=== PATIENT | female | born 1980 | race Caucasian/White ===

== ENCOUNTER 2017-08-31 18:51 | Emergency (ER) | payer OTHER, SELFPAY ==
[2017-08-31 18:58] VITALS: BP 122/70; PULSE 84; RESP 18; TEMP 37; O2SAT 100
--- NOTE | 2017-08-31 19:50 | ED_ITS ---
HPI - Headache General Chief Complaint: Headache Stated Complaint: HAD AN EPIDURAL NOW HASPAIN NAUSEA Time Seen by Provider: 08/31/17 19:39 Source: patient and family Mode of arrival: ambulatory Limitations: no limitations History of Present Illness HPI Narrative: Otherwise healthy 37-year-old female presents to the emergency department with 3 day history of severe positional headache with nausea and light sensitivity. Three days ago she had an epidural steroid injection with [facility] for chronic neck pain and her symptoms have persisted since. MD Complaint: headache Onset (ago): day(s) Onset description: gradual Location: frontal Severity: severe Quality: throbbing Relieving factors: other (Laying flat) Exacerbating factors: sitting/standing and light Associated symptoms: nausea Treatments prior to arrival: none Related Data Previous Rx's Medication Instructions Recorded docusate sodium 250 mg PO QDAY PRN #30 cap 01/14/16 ibuprofen 600 mg PO Q6HP PRN #30 tab 01/14/16 norethindrone (contraceptive) 0.35 mg PO QDAY #3 packet 10/16/16 [Marlin] noreth-ethinyl estradiol-iron 1 tab PO QDAY #3 pac 12/29/16 [Generess Fe] acyclovir 400 mg PO BID #60 tab-cap 02/06/17 Allergies Allergy/AdvReac Type Severity Reaction Status Date / Time No Known Drug Allergies Allergy Verified 08/31/17 20:04 Review of Systems Review of Systems All systems reviewed & are unremarkable except as noted in HPI and below Constitutional Denies chills, Denies fever(s), Reports headache(s), Denies lethargy and Denies weakness Eyes Denies change in vision, Denies eye discharge, Denies irritation and Denies loss of vision ENT Ears, Nose, Mouth, and Throat: Denies change in voice, Reports headache(s), Denies neck pain and Denies sore throat Cardiovascular Denies chest pain, Denies irregular heart rhythm, Denies lightheadedness, Denies palpitations, Denies dyspnea, Denies dyspnea on exertion and Denies orthopnea Respiratory Denies cough, Denies dyspnea, Denies dyspnea on exertion and Denies wheezing Gastrointestinal Gastrointestinal: Denies abdominal pain, Denies change in bowel habits, Denies diarrhea, Denies nausea and Denies vomiting Genitourinary Denies hematuria, Denies flank pain, Denies urinary incontinence and Denies urinary urgency Musculoskeletal Denies neck pain Integumentary/Breasts Denies pruritus, Denies erythema, Denies rash and Denies wounds Neurologic Denies confusion, Reports headache(s), Denies loss of vision and Denies weakness Psychiatric Denies anxiety, Denies confusion, Denies depression, Denies homicidal ideation and Denies suicidal ideation Endocrine Denies palpitations Hematologic/Lymphatic Denies easy bruising Allergic/Immunologic Denies wheezing PFSH Social History Smoking Status: Never smoker Exam Narrative Exam Narrative: 37-year-old female sitting in a dark room, obviously in pain holding her head Initial Vital Signs Initial Vital Signs: Vital Signs Temperature 98.6 F 08/31/17 18:58 Pulse Rate 84 08/31/17 18:58 Respiratory Rate 18 08/31/17 18:58 Blood Pressure 122/70 H 08/31/17 18:58 Pulse Oximetry 100 08/31/17 18:58 Const General: cooperative and well developed Nutritional Appearance: well nourished Orientation: alert, awake, oriented x3 and not confused HENNH Head: normal to inspection Ears: hearing grossly normal bilaterally Nose: external nose normal Face and sinus: normal facial exam Mouth: oral mucosae normal Eyes General: appearance normal, both eyes and all related structures Eyelids: eyelids normal Conjunctivae: conjunctivae normal Sclera: sclerae normal Pupils: PERRL EOM: EOM intact bilaterally Chest Chest: normal inspection of the chest Cardio Rate: regular rate Rhythm: regular rhythm Heart Sounds: no click, no gallops, no murmurs and no rubs Pulses: normal peripheral pulses Back/Spine/Pelvis Back: No CVA tenderness Cervical Spine: cervical ROM normal and No pain with cervical ROM Thoracic/Lumbar Spine: thoracic and lumbar spine normal to inspection Neuro General: alert, oriented x3, gait normal and no focal motor deficits Speech: speech normal Psych Appearance: well kempt Mental Status: mental status grossly normal Attitude: cooperative Thought Content: normal and suicidality Judgment: judgment good Course Orders Ordered: Discontinued Medications Sodium Chloride (Normal Saline 0.9%) 1,000 mls @ 1,000 mls/hr IV BOLUS ONE Stop: 08/31/17 21:01 Last Infusion: 08/31/17 21:36 Dose: 0 mls/hr Admin: 08/31/17 20:04 Dose: 1,000 mls/hr Consultations Consultation #1: Anesthesia Paged for likely blood patch Dr. Mahmood had lengthy bedside discussion with patient, after shared decision making they elected not to perform lumbar blood patch for a cervical epidural given lack of evidence of efficacy. Attempts to contact Dr. Khan, but he is not in our rolodex. Called Dr. Sanchez ( ortho) whom would try also, but unable prior to patient DC Time: 19:49 Vital Signs - 8 hr 08/31/17 20:19 08/31/17 20:49 08/31/17 21:45 Pulse Rate 73 70 72 Respiratory Rate 16 16 16 Blood Pressure Blood Pressure [Left Arm] 115/74 124/68 H 110/62 Pulse Oximetry 100 100 98 08/31/17 22:54 08/31/17 22:55 Pulse Rate 76 76 Respiratory Rate 15 15 Blood Pressure 108/75 Blood Pressure [Left Arm] 108/75 Pulse Oximetry 98 98 MDM - Headache Differential Diagnosis Differential diagnosis: Likely migraine, tension headache, subarachnoid hemorrhage, meningitis, sinusitis and postconcussion syndrome MDM Narrative Medical decision making narrative: headache highly suspicious for spinal headache in aftermath of cervical epidural. Patient had a terrible day yesterday and had significant pain even when lying flat, however today she is relatively comfortable while lying flat and complains only of significant pain upon sitting or standing. She denies fever or chills nor any neurologic symptoms such as numbness, tingling or weakness. Extensive bedside discussion with anesthesia and myself regarding lying flat and continuing to stay hydrated with contact to Dr. mejia office on Sunday is well as discussions of symptoms that would prompt her return Discharge Plan Departure Patient Disposition: Home, Self-Care Clinical Impression: Spinal headache Discharge Date/Time: 08/31/17 22:56 Interventions: ED Discharge Assessment Last Done: 08/31/17 22:55 Instructions: DI for Post-Spinal Puncture Headache Activity Restrictions/Additional Instructions: *You have been diagnosed with [ spinal headache ] *What to do: *Take medications as directed *Follow up with your primary care provider in 2-3 days *Return to ER if you should have any new, worsening or concerning symptoms such as fever over 100.4 F or neurologic symptoms such as numbness, tingling, weakness or mental status change Prescriptions: No Action ibuprofen 600 MG tablet 600 mg PO Q6HP PRNQty: 30 RF: 0 docusate sodium 250 MG capsule 250 mg PO QDAY PRNQty: 30 RF: 0 norethindrone (contraceptive) [Marlin] 0.35 MG tablet 0.35 mg PO QDAY Qty: 3 RF: 2 noreth-ethinyl estradiol-iron [Generess Fe] 1 EACH tablet,chewable 1 tab PO QDAY Qty: 3 RF: 4 acyclovir 400 MG tablet 400 mg PO BID Qty: 60 RF: 1
[2017-08-31] MEDS: SODIUM CHLORIDE 0.9% 1,000 ML 1000 ML IV (20:04)
[2017-08-31 20:19] VITALS: BP 115/74; PULSE 73; RESP 16; O2SAT 100
[2017-08-31 20:49] VITALS: BP 124/68; PULSE 70; RESP 16; O2SAT 100
--- NOTE | 2017-08-31 20:54 | PC.NURSE ---
Pain after steroid injection in cervical spine several days ago. Headache and neck pain and nausea. Relieved while lying flat.
[2017-08-31 21:45] VITALS: BP 110/62; PULSE 72; RESP 16; O2SAT 98
[2017-08-31 22:54] VITALS: BP 108/75; PULSE 76; RESP 15; O2SAT 98
[2017-08-31 22:55] VITALS: BP 108/75; PULSE 76; RESP 15; O2SAT 98
== END 2017-08-31 22:56 | disposition home or self-care (01) ==
PROVIDERS: Emergency Provider Emergency Medicine; PCP Specialist
DX: G97.1 Other reaction to spinal and lumbar puncture (principal)
CPT/HCPCS: 36591; 96360; 99283; 99284

== ENCOUNTER → 2019-02-05 13:13 | Outpatient (CLI) | payer OTHER, SELFPAY ==
--- NOTE | 2019-02-05 | DI.US.S_ITS ---
PROCEDURE: US ABDOMEN LIMITED INDICATIONS: ABDOMINAL PAIN TECHNIQUE: Real-time focused scanning was performed of the abdomen, with image documentation. COMPARISON: None. FINDINGS: Normal liver. No gallstones identified. Normal gallbladder wall. No pericholecystic fluid. Negative sonographic Vang sign. No biliary dilatation. Normal pancreas. IMPRESSION: No source for right upper quadrant pain identified. Dictated by: Rhett Quiroga Mata Interpreted: Alfonzo Murrell MD on 02/05/2019 at 14:06 Approved by: Alfonzo Murrell M.D. on 02/05/2019 at 15:45
== END ==
PROVIDERS: PCP Physician Assistant Medical; Visit Provider Physician Assistant Medical
DX: R10.11 Right upper quadrant pain (principal)
CPT/HCPCS: 76705